=== PATIENT | male | born 1990 | race African-American/Black ===

== ENCOUNTER 2018-02-08 17:47 | Emergency (ER) | payer SELFPAY ==
[~2018-02-08] VITALS: Ht 170.2 cm; Wt 72.6 kg
[2018-02-08] MEDS ORDERED: Norco 5mg/325mg tab ORAL ONE (18:00)
[2018-02-08] MEDS ORDERED: Bacitracin Oint UD TOPIC ONE (18:15)
[2018-02-08 19:16] VITALS: BP 136/75
--- NOTE | 2018-02-08 20:26 | Diagnostic Imaging Report ---
EXAM: US Scrotum CLINICAL HISTORY: PAIN TECHNIQUE: Real-time ultrasound of the scrotum with color Doppler and image documentation. COMPARISON: No relevant prior studies available. FINDINGS: Right testicle: Right testis measures about 38 x 28 x 30 mm. No torsion. Left testicle: Left testis measures about 32 x 17 x 31 mm. No torsion. Epididymides: Right epididymis has hyperreninemia and is enlarged. Unremarkable Left epididymis. Scrotum: Moderate right hydrocele with septation. IMPRESSION: 1. Right epididymitis. 2. No testicular torsion.
[2018-02-08] MEDS ORDERED: Lidocaine 1% MPF 10mg/ml 5ml INJ ONE (20:30)
--- NOTE | 2018-02-08 20:33 | Emergency Room Report ---
History of Present Illness General Chief Complaint: General Complaint Source: Patient Present Illness HPI 27-year-old male presents emergency department complaining of 8 out of 10 in severity right testicular pain and swelling over the course of 2 days. Patient denies penile discharge she denies swollen tender lymph nodes. Patient states he has been lifting heavy objects recently as he was helping someone move. Patient denies erythema or genital lesions/rashes. Patient nice fevers, chills , nausea, vomiting. He denies abdominal pain. Pt. is sexually active. Allergies: Coded Allergies: No Known Allergies (Unverified , 02/08/18) Patient History Past Medical History: see triage record Past Surgical History: none Pertinent Family History: none Reviewed Nursing Documentation: PMH: Agreed; PSxH: Agreed Nursing Documentation-PMH Past Medical History: No Stated History Review of Systems All Other Systems: negative except mentioned in HPI Physical Exam Vital Signs Date Time Temp Pulse Resp B/P (MAP) Pulse Ox O2 Delivery O2 Flow Rate FiO2 02/08/18 17:47 99.1 86 18 136/75 99 Room Air 99.1 Sp02 EP Interpretation: reviewed, normal General Appearance: alert, GCS 15, non-toxic, mild distress Head: normocephalic, atraumatic Eyes: bilateral eye normal inspection, bilateral eye PERRL ENT: hearing grossly normal, normal voice Neck: full range of motion Respiratory: lungs clear, normal breath sounds, speaking full sentences Cardiovascular #1: regular rate, rhythm Gastrointestinal: normal bowel sounds, non tender, soft Genitourinary: no CVA tenderness, penis normal, other - Right testicular swelling, no obvious hernia, cremasterics reflex is difficult to illicit , positive phren's sign.- reduced pain upon elevation. Musculoskeletal: back normal, gait/station normal, normal range of motion, non- tender Neurologic: alert, oriented x3, responsive, motor strength/tone normal, sensory intact, normal gait, speech normal, grossly normal Psychiatric: judgement/insight normal Skin: normal color, no rash, warm/dry, well hydrated Lymphatic: no adenopathy Medical Decision Making PA Attestation Dr. Mckenzie is my supervising Physician whom patient management has been discussed with. Diagnostic Impression: Primary Impression: Epididymitis Additional Impression: Hydrocele in adult ER Course 27-year-old male presents emergency department complaining of 8 out of 10 in severity right testicular pain and swelling over the course of 2 days. Patient denies penile discharge she denies swollen tender lymph nodes. Patient states he has been lifting heavy objects recently as he was helping someone move. Patient denies erythema or genital lesions/rashes. Patient nice fevers, chills , nausea, vomiting. He denies abdominal pain. Pt. is sexually active. Ddx considered but are not limited to testicular torsion, epididymitis, orchitis , abscess, hernia Vital signs: are WNL, pt. is afebrile H&PE are most consistent with epididymitis , hydrocele or torsion. Right testicular swelling, no obvious hernia, cremasterics reflex is difficult to illicit , positive phren's sign.- reduced pain upon elevation. ORDERS: - Testicular ultrasound: negative for torsion, right epididymitis noted, and right hydrocele. ED INTERVENTIONS: - Rocephin IM DISCHARGE: At this time pt. is stable for d/c to home. Will provide printed patient care instructions, and any necessary prescriptions. Care plan and follow up instructions have been discussed with the patient prior to discharge. CT/MRI/US Diagnostic Results CT/MRI/US Diagnostic Results : Imaging Test Ordered: TESTICULAR US Impression "negative for torsion, right epididymitis noted, and right hydrocele." Per official radiology report- Please see report for specific details. Last Vital Signs Date Time Temp Pulse Resp B/P (MAP) Pulse Ox O2 Delivery O2 Flow Rate FiO2 02/08/18 19:16 98.0 18 136/75 99 Room Air 98.0 02/08/18 17:47 86 Disposition: HOME, SELF-CARE Condition: Stable Scripts Ibuprofen* (MOTRIN*) 600 Mg Tablet 600 MG ORAL THREE TIMES A DAY, #30 TAB 0 Refills Prov: Brianna Hollingsworth 02/08/18 Doxycycline Hyclate* (VIBRAMYCIN*) 100 Mg Capsule 100 MG ORAL EVERY 12 HOURS for 7 Days, #14 CAP 0 Refills Prov: Brianna Hollingsworth 02/08/18 Referrals: NOT CHOSEN [facility]/,REFERRING (PCP) Patient Instructions: Epididymitis, Hydrocele, Adult Additional Instructions: Take medications as directed. Follow up with a Primary Care Provider in 3-5 days, even if your symptoms have resolved. --Please review list of primary care clinics, if you do not already have a primary care provider Return sooner to ED if new symptoms occur, or current symptoms become worse. - Please note that this Emergency Department Report was dictated using youcalcprovider scribe technology software, occasionally this can lead to erroneous entry secondary to interpretation by the dictation equipment. Brianna Hollingsworth Feb 08, 2018 20:33
[2018-02-08] MEDS ORDERED: IBUPROFEN600 MG ORAL (20:34)
[2018-02-08] MEDS ORDERED: VIBRAMYCIN100 MG ORAL (20:34)
[2018-02-08 20:38] VITALS: BP 132/77
== END 2018-02-08 20:39 | disposition home or self-care (01) ==
LOC: EDBD 17:47 → EMR 18:15
DX: N45.1 Epididymitis (principal); N43.3 Hydrocele, unspecified
CPT/HCPCS: 76870; 96372; 99284; J0696